=== PATIENT | male | born 1985 | race Caucasian/White ===

== ENCOUNTER 2017-09-10 22:52 | Emergency (ER) | payer MEDICAID, OTHER ==
[2017-09-10 23:59] LABS: #Basophils 0.1 thou/uL (0.0-0.2); #Eosinphils 0.2 thou/uL (0.0-0.7); #Lymphocytes 1.9 thou/uL (1.20-3.40); #Monocytes 0.8 thou/uL (0.11-0.59); #Neutrophils 4.8 thou/uL (1.40-6.50); %Basophils 1.1 % (0.0-1.0); %Eosinophils 2.5 % (0.0-10.0); %Lymphocytes 24.7 % (21.0-51.0); %Monocytes 10.4 % (0.0-10.0); Hematocrit 47.3 % (42.0-52.0); Red Blood Cell (RBC) Count 5.28 mill/uL (4.70-6.10); White Blood Cell (WBC) Count 7.7 thou/uL (4.8-10.8)
[2017-09-11 00:21] LABS: ALT (SGPT) 12 U/L (8-55); AST (SGOT) 14 U/L (5-34); Acetaminophen Less than 6.0 mcg/mL (10.0-30.0); Alkaline Phosphatase 59 U/L (40-150); Anion Gap 13 mmol/L (10-20); BUN (Urea Nitrogen) 16 mg/dL (8.9-20.6); Bilirubin, Total 0.3 mg/dL (0.2-1.2); Calc. Creatinine Clearance 0 mL/min (70-130); Calcium 9.2 mg/dL (7.8-10.44); Carbon Dioxide 25 mmol/L (22-29); Chloride 104 mmol/L (98-107); Estimated GFR-MDRD Greater than 90; Globulin 2.7 g/dL (2.4-3.5); Protein, Total 6.9 g/dL (6.0-8.3); Salicylate Less than 8.0 mg/dL (15.0-30.0)
[2017-09-11 00:56] LABS: Bilirubin Negative (Negative); Blood, Urine Negative (Negative); Glucose, Urine (Dipstick) Negative (Negative); Ketone, Urine Negative (Negative); Nitrite Negative (Negative); Protein, Urine (Dipstick) Negative (Neg-Trace)
[2017-09-11 01:07] LABS: Amphetamine Not Detected (NotDetected); Methadone Not Detected (NotDetected); Methamphetamine Not Detected (NotDetected)
== END 2017-09-11 09:06 ==
LOC: ERS 22:52
DX: R45.851 Suicidal ideations (principal); I10 Essential (primary) hypertension; F41.9 Anxiety disorder, unspecified; F17.210 Nicotine dependence, cigarettes, uncomplicated; F20.9 Schizophrenia, unspecified
CPT/HCPCS: 36415; 80053; 80306; 80307; 81003; 82550; 84443; 85025; 99285

== ENCOUNTER 2018-11-29 17:18 | Inpatient (IN) | payer OTHER ==
[2018-11-29 18:13] LABS: #Eosinphils 0.1 thou/uL (0.0-0.7); #Lymphocytes 1.6 thou/uL (1.20-3.40); #Monocytes 0.4 thou/uL (0.11-0.59); #Neutrophils 3.9 thou/uL (1.40-6.50); %Basophils 0.3 % (0.0-1.0); %Lymphocytes 26.2 % (21.0-51.0); %Monocytes 6.8 % (0.0-10.0); %Neutrophils 64.7 % (42.0-75.0); Hemoglobin 15.2 g/dL (14.0-18.0); Mean Corpuscular HGB CONC 33.4 g/dL (32.0-36.0); Mean Corpuscular Hemoglobin 30.6 pg (27.0-31.0); Mean Corpuscular Volume 91.5 fL (78.0-98.0); Mean Platelet Volume 6.9 fL (7.4-10.4); Platelet Count 265 thou/uL (130-400); RBC Distribution Width 12.1 % (11.5-14.5); Red Blood Cell (RBC) Count 4.97 mill/uL (4.70-6.10)
[2018-11-29 18:36] LABS: ALT (SGPT) 14 U/L (8-55); AST (SGOT) 15 U/L (5-34); Acetaminophen Less than 6.0 mcg/mL (10.0-30.0); Albumin 4.5 g/dL (3.5-5.0); Alcohol Less than 10 mg/dL (Less than 10); Alkaline Phosphatase 72 U/L (40-150); Anion Gap 13 mmol/L (10-20); BUN (Urea Nitrogen) 13 mg/dL (8.9-20.6); Bilirubin, Total 0.2 mg/dL (0.2-1.2); Calc. Creatinine Clearance 0 mL/min (70-130); Calcium 10.3 mg/dL (7.8-10.44); Carbon Dioxide 27 mmol/L (22-29); Chloride 105 mmol/L (98-107); Estimated GFR-MDRD Greater than 90; Globulin 2.7 g/dL (2.4-3.5); Glucose 99 mg/dL (70-105); Potassium 3.8 mmol/L (3.5-5.1); Protein, Total 7.2 g/dL (6.0-8.3); Salicylate Less than 8.0 mg/dL (15.0-30.0); Sodium 141 mmol/L (136-145)
[2018-11-29 18:58] LABS: Bilirubin Negative (Negative); Blood, Urine Negative (Negative); Clarity CLEAR (Clear); Glucose, Urine (Dipstick) Negative (Negative); Leukocyte Negative (Negative); Nitrite Negative (Negative); Protein, Urine (Dipstick) Negative (Neg-Trace); Specific Gravity, Urine 1.018 (1.002-1.036); Urobilinogen 0.2 mg/dL (0.2-1.0); pH, Urine 5.5 (5.0-9.0)
[2018-11-29 19:07] LABS: Amphetamine Not Detected (NotDetected); Barbiturates Screen Not Detected (NotDetected); Benzodiazepine Screen Not Detected (NotDetected); Cocaine Metabolite Screen Not Detected (NotDetected); Medtox Control Line Valid? VALID (VALID); Medtox Reader # READER 1; Methadone Not Detected (NotDetected); Methamphetamine Not Detected (NotDetected); Opiate Screen Not Detected (NotDetected); Oxycodone Screen Not Detected (NotDetected); Phencyclidine (PCP) Not Detected (NotDetected); THC/Cannabinoid Screen Not Detected (NotDetected); Tricyclic Screen Not Detected (NotDetected)
[2018-11-29] MEDS ORDERED: Ondansetron PF 4 MG/2 ML Vial ONE (19:36)
[2018-11-29] MEDS ORDERED: Lorazepam 2 MG/ML VIAL ONE (22:43)
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
[2018-11-30] MEDS: Dextrose 5 % And 0.9 % NaCl 1,000 ML IV SCH ×2 (01:10→06:34)
[2018-11-30] MEDS ORDERED: Ondansetron PF 4 MG/2 ML Vial IVP PRN (04:51)
[2018-11-30 04:57] LABS: Carbamazepine-Tegretol 27.6 ug/mL (4.0-12.0)
[2018-11-30] MEDS ORDERED: Acetaminophen 325 MG TAB PO PRN (05:05)
[2018-11-30 06:28] LABS: Carbamazepine-Tegretol 25.7 ug/mL (4.0-12.0)
[2018-11-30] MEDS: Sodium Chloride 0.9% 1,000 ML IV SCH ×2 (06:35→16:50)
[2018-11-30] MEDS: Heparin 5,000 UNITS/ML VIAL SC SCH ×3 (08:39→20:40)
[2018-11-30 11:20] LABS: Carbamazepine-Tegretol 22.9 ug/mL (4.0-12.0)
--- NOTE | 2018-11-30 11:54 | PDOC.PN ---
- Subjective Encounter Start Date: 11/30/18 Encounter Start Time: 11:45 Subjective: f/u s/p Tegretol OD and SI/attempt with approx 90 tabs. Receiving -: IVF's, tele monitor. Nursing reports no significant changes, minimally -: responds to voice, lethargic, sleeping. - Objective Resuscitation Status - Order Detail: 11/29/18 22:26 Resuscitation Status Routine Resuscitation Status: FULL: Full Resuscitation MAR Reviewed: Yes Vital Signs & Weight: Vital Signs (12 hours) Temp 11/30/18 04:05 98.4 F 11/30/18 00:11 97.2 F L Weight Weight 180 lb 9 oz Most Recent Monitor Data Heart Rate from ECG 104 NIBP 153/95 NIBP BP-Mean 114 Respiration from ECG 13 SpO2 99 I&O: 11/29/18 11/30/18 12/01/18 06:59 06:59 06:59 Output Total 625 325 Balance -625 -325 Result Diagrams: 11/29/18 17:28 11/29/18 17:28 Additional Labs: Laboratory Tests 11/29/18 11/29/18 11/30/18 17:29 20:47 01:25 TSH 3rd Generation 0.3233 L Carbamazepine 31.0 H* 27.6 H* 11/30/18 11/30/18 05:22 10:10 TSH 3rd Generation Carbamazepine 25.7 H* 22.9 H* EKG Reviewed by me: Yes (Tele - SR) Phys Exam - Physical Examination lethargic, stares at ceiling, does not track minimally responsive pupils bilat Neck: no nodes, no JVD, supple, full ROM Respiratory: no wheezing, no rales, no rhonchi, clear to auscultation bilateral Cardiovascular: RRR, no significant murmur, no rub, gallop Gastrointestinal: soft, non-tender, no distention, positive bowel sounds Musculoskeletal: no edema, pulses present non-verbal, lethargic, eyes open but not tracking, moves head [id number] occasionally Neurological: moves all 4 limbs Skin: normal turgor, cap refill <2 seconds Deviation from normal: Clayton with myranda urine Dx/Plan (1) Suicide attempt by drug ingestion Code(s): T50.902A - POISONING BY UNSP DRUG/MEDS/BIOL SUBST, SELF-HARM, INIT Status: Acute Comment: Apparent recurrent attempts, [facility] evaluation when medically stable, sitter 1:1, wrist restraints (2) Carbamate overdose Code(s): T42.6X1A - POISONING BY OTH ANTIEPLPTC AND SED-HYPNTC DRUGS, ACC, INIT Status: Acute Comment: continue IV D5NS, serial Carbamezapine monitoring, see above (3) Toxic encephalopathy Code(s): G92 - TOXIC ENCEPHALOPATHY Status: Acute Comment: Secondary to above, supportive mgmt, no reversal agent (4) Depression Code(s): F32.9 - MAJOR DEPRESSIVE DISORDER, SINGLE EPISODE, UNSPECIFIED Status : Chronic Comment: Apparently long-standing, [facility] evaluation when medically stabilizing - Plan social media marketing manager, DVT proph w/SCDs Continue supportive mgmt -: Continue IV D5NS @ 150ml/h -: [facility] consult when medically stable -: Sitter for 1:1 -: AM lab: BMP, CBC, Tegretol level * .
[2018-11-30] MEDS ORDERED: Lorazepam 2 MG/ML VIAL SLOW IVP PRN (12:16)
[2018-11-30 14:42] LABS: Carbamazepine-Tegretol 21.2 ug/mL (4.0-12.0)
[2018-11-30 17:37] LABS: Carbamazepine-Tegretol 15.6 ug/mL (4.0-12.0)
[2018-11-30 19:26] VITALS: BMI 24.5
[2018-11-30 21:41] LABS: Carbamazepine-Tegretol 13.2 ug/mL (4.0-12.0)
[2018-12-01 05:20] LABS: #Eosinphils 0.1 thou/uL (0.0-0.7); #Lymphocytes 2.1 thou/uL (1.20-3.40); #Monocytes 0.6 thou/uL (0.11-0.59); #Neutrophils 3.6 thou/uL (1.40-6.50); %Basophils 0.7 % (0.0-1.0); %Eosinophils 1.6 % (0.0-10.0); %Lymphocytes 32.5 % (21.0-51.0); %Neutrophils 56.2 % (42.0-75.0); Hemoglobin 13.9 g/dL (14.0-18.0); Mean Corpuscular HGB CONC 33.5 g/dL (32.0-36.0); Mean Corpuscular Hemoglobin 30.6 pg (27.0-31.0); Mean Corpuscular Volume 91.4 fL (78.0-98.0); Mean Platelet Volume 7.4 fL (7.4-10.4); Platelet Count 242 thou/uL (130-400); RBC Distribution Width 12.2 % (11.5-14.5); Red Blood Cell (RBC) Count 4.53 mill/uL (4.70-6.10); White Blood Cell (WBC) Count 6.5 thou/uL (4.8-10.8)
[2018-12-01 05:40] LABS: Anion Gap 12 mmol/L (10-20); BUN (Urea Nitrogen) 10 mg/dL (8.9-20.6); Calc. Creatinine Clearance 125 mL/min (70-130); Calcium 8.4 mg/dL (7.8-10.44); Carbon Dioxide 27 mmol/L (22-29); Chloride 109 mmol/L (98-107); Estimated GFR-MDRD 89; Glucose 102 mg/dL (70-105); Potassium 3.3 mmol/L (3.5-5.1); Sodium 145 mmol/L (136-145)
[2018-12-01] MEDS: Sodium Chloride 0.9% 1,000 ML IV SCH ×2 (06:07→11:49)
[2018-12-01] MEDS: Heparin 5,000 UNITS/ML VIAL SC SCH ×3 (10:11→21:11)
[2018-12-01 11:39] VITALS: BP 127/87
--- NOTE | 2018-12-01 12:08 | PDOC.PN ---
- Subjective Encounter Start Date: 12/01/18 Encounter Start Time: 12:00 Subjective: f/u for suicide attempt by Tegretol OD. Overall feeling better, alert -: responsive, eating and back to baseline. - Objective Resuscitation Status - Order Detail: 11/29/18 22:26 Resuscitation Status Routine Resuscitation Status: FULL: Full Resuscitation MAR Reviewed: Yes Vital Signs & Weight: Vital Signs (12 hours) Temp Pulse BP Pulse Ox 12/01/18 11:05 99.4 F 12/01/18 09:17 100 127/87 12/01/18 08:00 99 12/01/18 07:02 98.8 F 12/01/18 04:00 98.5 F Weight Weight 180 lb 14.4 oz Most Recent Monitor Data Heart Rate from ECG 78 NIBP 123/90 NIBP BP-Mean 101 Respiration from ECG 7 SpO2 96 I&O: 11/30/18 12/01/18 12/02/18 06:59 06:59 06:59 Intake Total 2837 Output Total 625 2825 Balance -625 12 Result Diagrams: 12/01/18 04:48 12/01/18 04:48 Additional Labs: Laboratory Tests 11/29/18 11/29/18 11/30/18 17:29 20:47 01:25 Free T4 TSH 3rd Generation 0.3233 L Carbamazepine 31.0 H* 27.6 H* 11/30/18 11/30/18 11/30/18 05:22 10:10 13:11 Free T4 TSH 3rd Generation Carbamazepine 25.7 H* 22.9 H* 21.2 H* 11/30/18 11/30/18 12/01/18 17:05 21:05 04:48 Free T4 0.76 TSH 3rd Generation Carbamazepine 15.6 H 13.2 H EKG Reviewed by me: Yes (Tele - SR) Phys Exam - Physical Examination Constitutional: NAD HEENT: PERRLA, sclera anicteric, oral pharynx no lesions Neck: no nodes, no JVD, supple, full ROM Respiratory: no wheezing, no rales, no rhonchi, clear to auscultation bilateral Cardiovascular: RRR, no significant murmur, no rub, gallop Gastrointestinal: soft, non-tender, no distention, positive bowel sounds Musculoskeletal: no edema, pulses present Neurological: normal sensation, moves all 4 limbs Psychiatric: A&O x 3 Skin: normal turgor, cap refill <2 seconds Dx/Plan (1) Suicide attempt by drug ingestion Code(s): T50.902A - POISONING BY UNSP DRUG/MEDS/BIOL SUBST, SELF-HARM, INIT Status: Acute Comment: Apparent recurrent attempts, [facility] evaluation when medically stable, sitter 1:1, wrist restraints d/c'd (2) Carbamate overdose Code(s): T42.6X1A - POISONING BY OTH ANTIEPLPTC AND SED-HYPNTC DRUGS, ACC, INIT Status: Acute Comment: Resolving, supportive mgmt (3) Toxic encephalopathy Code(s): G92 - TOXIC ENCEPHALOPATHY Status: Acute Comment: Secondary to above, supportive mgmt, no reversal agent, resolved (4) Depression Code(s): F32.9 - MAJOR DEPRESSIVE DISORDER, SINGLE EPISODE, UNSPECIFIED Status : Chronic Comment: Apparently long-standing, [facility] evaluation - Plan social sciences professor, DVT proph w/SCDs Stable currently -: Saline lock IVF -: D/C Matilde -: [facility]MR consult today, medically stable -: KCL 40meq x 1 dose today * .
[2018-12-01] MEDS ORDERED: Potassium Chloride 20 MEQ TAB PO SCH (12:45)
[2018-12-02 03:52] VITALS: TEMP 97.4
--- NOTE | 2018-12-02 09:50 | DIS ---
DATE OF ADMISSION: 11/29/2018 DATE OF DISCHARGE: 12/02/2018 DISCHARGE DIAGNOSES: 1. Suicide attempt after Tegretol overdose. 2. Tegretol overdose, resolving. 3. Toxic encephalopathy secondary to #1 and #2, resolving. 4. Depression. CONSULTATIONS: [facility]. PERTINENT LAB AND X-RAY FINDINGS: Complete metabolic profile within normal limits. TSH 0.32. Free T4 0.76. CBC within normal limits. Urinalysis negative. Urine drug screen showed a carbamazepine level ranging between 13.2 to 31.0. HOSPITAL COURSE: The patient was admitted to the intermediate care unit after presenting status post intentional overdose of carbamazepine. The patient with prior history of suicide attempts with history of depression and anxiety, placed on a monitored bed with a sitter for one-on-one observation. The patient received IV fluids as well as a consultation with the Poison Control Center. The patient was conservatively managed during the hospital course, receiving serial Tegretol measurements showing overall decreasing trend as well as suicide precautions and constant medical supervision. The patient clinically stabilized, and approximately 48 hours after admission, evaluated by the [facility] Service and deemed appropriate for inpatient psychiatric care. Overall, the patient is clinically stable and tolerating regular oral intake. I have examined the patient at the time of discharge and discussed followup instructions. The patient verbalized understanding and in agreement with transfer to [facility] on 12/02/2018. DISCHARGE MEDICATIONS: 1. Carbamazepine 200 mg p.o. t.i.d. 2. Lexapro 20 mg p.o. daily. 3. Hydroxyzine 50 mg p.o. t.i.d. 4. Mirtazapine 45 mg p.o. at bedtime. FOLLOWUP: The patient will follow up with Dr. Alyx Rojo after discharge from [facility]. The patient will follow up with Dr. Enriquez at [facility] on 12/02/2018. CONDITION ON DISCHARGE: Fair. ACTIVITY: Ad-patience. DIET: Regular. CODE STATUS: Full. DISPOSITION: Discharged to [facility], [place], [place], on 12/02/2018. TIME SPENT: Total time preparing and coordinating discharge is 32 minutes. Job ID: [id number]
[2018-12-02] MEDS: Heparin 5,000 UNITS/ML VIAL SC SCH (10:29)
== END 2018-12-02 11:10 | DRG 917 ==
LOC: ERS 17:18 → IMCU/EMU 23:31
PROVIDERS: ADMIT Family Medicine; ATTEND Family Medicine
DX: T42.1X2A Poisoning by iminostilbenes, intentional self-harm, initial encounter (principal); G92 Toxic encephalopathy; F41.9 Anxiety disorder, unspecified; F20.9 Schizophrenia, unspecified; F31.9 Bipolar disorder, unspecified
CPT/HCPCS: 36415; 80048; 80053; 80156; 80306; 80307; 81003; 84439; 84443; 85025; 93005; J1644; J2060; J2405